=== PATIENT | male | born 2000 | race Caucasian/White ===

== ENCOUNTER 2021-08-15 22:52 | Emergency (ER) | payer OTHER ==
[~2021-08-15] VITALS: Ht 170.2 cm; Wt 55.8 kg
[2021-08-15 23:06] VITALS: BP 129/72
[2021-08-15] MEDS ORDERED: KETOROLAC 60 MG/2 ML VIAL IM ONE (23:15)
--- NOTE | 2021-08-15 23:15 | NUR ---
Wheel chair to bed 1 with his family/friend.
--- NOTE | 2021-08-15 23:23 | NUR ---
PT TAKEN TO CT
--- NOTE | 2021-08-15 23:47 | NUR ---
PT RETURN FROM CT
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
[2021-08-16] MEDS ORDERED: HYDROcodone/APAP 5/325 MG 1 TAB TAB PO ONE (01:15)
--- NOTE | 2021-08-16 02:56 | NUR ---
PT C/O OF ONGOING BACK PAIN. ERMD AWARE.
[2021-08-16] MEDS ORDERED: HYDR-5080 PO (03:00)
[2021-08-16] MEDS ORDERED: IBUP-2218 PO (03:00)
--- NOTE | 2021-08-16 03:08 | NUR ---
PT REPORTS PAIN IS OK HAS IMPROVED, PAIN ONLY PRESENT UPON MOVEMENT BUT HAS IMPROVED.
[2021-08-16 03:09] VITALS: BP 124/78
--- NOTE | 2021-08-16 03:09 | NUR ---
Patient discharged with v/s stable. Written and verbal after care instructions given and explained. Patient alert, oriented and verbalized understanding of instructions. Ambulatory with steady gait. All questions addressed prior to discharge. ID band removed. Patient advised to follow up with PMD. Rx of IBUPROFEN, NORCO given. Patient educated on indication of medication including possible reaction and side effects. Opportunity to ask questions provided and answered.
== END 2021-08-16 03:09 | disposition home or self-care (01) ==
LOC: MED 22:52
DX: M54.2 Cervicalgia (principal); M54.9 Dorsalgia, unspecified; Z79.899 Other long term (current) drug therapy; V89.2XXA Person injured in unspecified motor-vehicle accident, traffic, initial encounter; Y93.89 Activity, other specified; Y92.89 Other specified places as the place of occurrence of the external cause; Y99.8 Other external cause status
CPT/HCPCS: 70450; 72125; 72128; 72131; 96372; 99285; J1885

== ENCOUNTER 2021-08-23 22:00 | Emergency (ER) | payer OTHER ==
[~2021-08-23] VITALS: Ht 177.8 cm; Wt 63.5 kg
[~2021-08-23 22:00] MED LIST: HYDR-5080 PO; IBUP-2218 PO
[2021-08-23 22:04] VITALS: BP 105/60
--- NOTE | 2021-08-23 22:11 | NUR ---
DR FOSTER EXAMINED IN TRIAGE
--- NOTE | 2021-08-23 22:23 | NUR ---
PT CLEARED FOR DISCHARGE BY DR. FOSTER. ALL DISCHARGE INSTRUCTIONS GIVEN BY DR. FOSTER.
== END 2021-08-23 22:29 | disposition home or self-care (01) ==
LOC: MED 22:00
DX: M54.6 Pain in thoracic spine (principal); R07.89 Other chest pain; Z79.899 Other long term (current) drug therapy
CPT/HCPCS: 99281